=== PATIENT | male | born 1965 | race Caucasian/White ===

== ENCOUNTER 2017-09-08 11:07 | Emergency (ER) | payer OTHER, SELFPAY ==
--- NOTE | 2017-09-08 11:51 | RAD ---
CHEST 1 VIEW LEFT RIBS 3 VIEWS: Date: 09/08/17 HISTORY: Cough x3 weeks. FINDINGS: CHEST: Normal cardiac silhouette. Costophrenic angles are clear. Left perihilar opacity measuring 6.5 cm. In fection is suspected. No pneumothorax. LEFT RIBS: No fracture. No cortical irregularity. No periosteal reaction. IMPRESSION: 1. Unremarkable left ribs. 2. Left perihilar opacity, which is presumed to be due to pneumonia until proven otherwise. Clinical correlation with patient's past medical history is essential and current presentation is essential. If the patient does not present clinically for pneumonia, better interrogation with CT scan be perfor med. CODE LN. POS: [facility]
[2017-09-08] MEDS ORDERED: Ketorolac Tromethamine 30 MG/ML VIAL ONE (12:10)
[2017-09-08 12:14] LABS: #Eosinphils 0.2 thou/uL (0.0-0.7); #Lymphocytes 1.3 thou/uL (1.20-3.40); #Monocytes 1.3 thou/uL (0.11-0.59); #Neutrophils 10.4 thou/uL (1.40-6.50); %Basophils 0.4 % (0.0-1.0); %Eosinophils 1.3 % (0.0-10.0); %Lymphocytes 9.9 % (21.0-51.0); %Neutrophils 78.5 % (42.0-75.0); Hemoglobin 15.7 g/dL (14.0-18.0); Mean Corpuscular HGB CONC 33.3 g/dL (32.0-36.0); Mean Corpuscular Hemoglobin 33.5 pg (27.0-31.0); Mean Platelet Volume 7.6 fL (7.4-10.4); Platelet Count 283 thou/uL (130-400); RBC Distribution Width 11.6 % (11.5-14.5); White Blood Cell (WBC) Count 13.2 thou/uL (4.8-10.8)
[2017-09-08 12:32] LABS: Anion Gap 14 mmol/L (10-20); BUN (Urea Nitrogen) 10 mg/dL (8.9-20.6); Calc. Creatinine Clearance 0 mL/min (70-130); Calcium 9.2 mg/dL (7.8-10.44); Carbon Dioxide 23 mmol/L (22-29); Chloride 102 mmol/L (98-107); Estimated GFR-MDRD 86; Glucose 194 mg/dL (70-105); Potassium 3.9 mmol/L (3.5-5.1); Sodium 135 mmol/L (136-145)
[2017-09-08] MEDS ORDERED: ISOVUE-370 76%-LOCM 1 ML ONE (13:03)
--- NOTE | 2017-09-08 15:13 | CT ---
CT PULMONARY ANGIOGRAM WITH IV CONTRAST AND 3D MIP RECONSTRUCTIONS: Date: 09/08/17 PROVIDED CLINICAL HISTORY: Cough and chest pain. FINDINGS: There is no evidence for central or segmental pulmonary embolus. The heart, pericardium, and great ve ssels appear unremarkable. There is superior segment left lower lobe consolidation compatible with pn eumonia. Mild reactive hilar lymph node prominence on the left. Lungs appear otherwise clear. No pleu ral fluid or pneumothorax apparent. The airway appears patent and of normal caliber. The osseous stru ctures demonstrate no concerning osteoblastic or osteolytic lesions. The visualized portions of the u pper abdomen demonstrate an unremarkable CT appearance for the phase of contrast in which the study w as acquired. IMPRESSION: 1. No evidence for central or segmental pulmonary embolus. 2. Superior segment left lower lobe pneumonia. POS: [facility]
== END 2017-09-08 14:38 | disposition home or self-care (01) ==
LOC: ERS 11:07
DX: J18.9 Pneumonia, unspecified organism (principal); F17.210 Nicotine dependence, cigarettes, uncomplicated
CPT/HCPCS: 36415; 71275; 80048; 85025; 85379; 96374; J1885

== ENCOUNTER 2017-12-26 18:51 | Emergency (ER) | payer SELFPAY ==
--- NOTE | 2017-12-26 21:18 | RAD ---
PORTABLE UPRIGHT FRONTAL CHEST RADIOGRAPH: 12/26/17 COMPARISON: 08/20/07. HISTORY: Sore throat, headache, cough. FINDINGS: The lungs are clear. Heart and mediastinal contours are unremarkable. IMPRESSION: No acute findings. POS: [facility]
== END 2017-12-26 21:32 | disposition home or self-care (01) ==
LOC: ERS 18:51
DX: J06.9 Acute upper respiratory infection, unspecified (principal); I10 Essential (primary) hypertension; F17.210 Nicotine dependence, cigarettes, uncomplicated
CPT/HCPCS: 71045; 87081; 87430

== ENCOUNTER 2018-03-11 10:18 | Emergency (ER) | payer OTHER, SELFPAY | END 2018-03-11 10:50 | disposition home or self-care (01) | LOC: ERS 10:18 | DX: K04.7 Periapical abscess without sinus (principal); I10 Essential (primary) hypertension; F17.210 Nicotine dependence, cigarettes, uncomplicated | CPT/HCPCS: 99282 ==

== ENCOUNTER 2018-10-12 11:18 | Emergency (ER) | payer OTHER | END 2018-10-12 12:33 | disposition home or self-care (01) | LOC: ERS 11:18 | DX: J06.9 Acute upper respiratory infection, unspecified (principal); I10 Essential (primary) hypertension; F17.210 Nicotine dependence, cigarettes, uncomplicated | CPT/HCPCS: 87804; 99283 ==

== ENCOUNTER 2018-10-14 06:10 | Emergency (ER) | payer OTHER ==
--- NOTE | 2018-10-14 08:39 | RAD ---
CHEST 2 VIEWS: INDICATION: Cough and congestion. COMPARISON: Prior exam dated 12/26/2017. FINDINGS: There is left upper lobe airspace consolidation consistent with pneumonia. The right lung is clear. Heart size is normal. No acute osseous abnormality is evident. IMPRESSION: Left upper lobe pneumonia. Recommend radiographic followup to resolution. POS: [facility]
[2018-10-14] MEDS ORDERED: cefTRIAXone\\ROCEPHIN 1 GM VIAL ONE (08:42)
[2018-10-14] MEDS ORDERED: Lidocaine 1% PF 5 ML VIAL ONE (08:42)
== END 2018-10-14 14:07 | disposition home or self-care (01) ==
LOC: ERS 06:10
DX: J18.9 Pneumonia, unspecified organism (principal); I10 Essential (primary) hypertension; F17.210 Nicotine dependence, cigarettes, uncomplicated
CPT/HCPCS: 71046; 93005; 94640; 96372; J0696; J2001; J7620

== ENCOUNTER 2018-10-16 17:51 | Inpatient (IN) | payer OTHER ==
[~2018-10-16 17:51] MED LIST: ISOVUE-370 76%-LOCM 1 ML ONE
--- NOTE | 2018-10-16 18:19 | RAD ---
Radiograph chest one view: 10/16/2018 At 6:14 PM HISTORY: 53-year-old male with cough and dyspnea COMPARISON: 10/14/2018 FINDINGS: Airspace opacity involving significant portion of left upper lobe is unchanged. No cardiomegaly. No p neumothorax or pulmonary edema. No interval change. IMPRESSION: Left upper lobe pneumonia without major interval change.
[2018-10-16] MEDS ORDERED: Acetaminophen 500 MG TAB ONE (18:34)
[2018-10-16 18:41] LABS: #Basophils 0.1 thou/uL (0.0-0.2); #Eosinphils 0.2 thou/uL (0.0-0.7); #Lymphocytes 2.7 thou/uL (1.20-3.40); #Monocytes 1.7 thou/uL (0.11-0.59); #Neutrophils 15.1 thou/uL (1.40-6.50); %Basophils 0.3 % (0.0-1.0); %Eosinophils 0.9 % (0.0-10.0); %Lymphocytes 13.7 % (21.0-51.0); %Monocytes 8.7 % (0.0-10.0); %Neutrophils 76.5 % (42.0-75.0); Hemoglobin 14.8 g/dL (14.0-18.0); Mean Corpuscular HGB CONC 30.5 g/dL (32.0-36.0); Mean Corpuscular Hemoglobin 30.2 pg (27.0-31.0); Mean Corpuscular Volume 99.2 fL (78.0-98.0); Mean Platelet Volume 7.6 fL (7.4-10.4); Platelet Count 520 thou/uL (130-400); RBC Distribution Width 11.9 % (11.5-14.5); Red Blood Cell (RBC) Count 4.89 mill/uL (4.70-6.10); White Blood Cell (WBC) Count 19.8 thou/uL (4.8-10.8)
[2018-10-16 19:11] LABS: ALT (SGPT) 39 U/L (8-55); AST (SGOT) 39 U/L (5-34); Albumin 3.5 g/dL (3.5-5.0); Alkaline Phosphatase 164 U/L (40-150); Anion Gap 16 mmol/L (10-20); BUN (Urea Nitrogen) 9 mg/dL (8.4-25.7); Bilirubin, Total 0.4 mg/dL (0.2-1.2); Calc. Creatinine Clearance 0 mL/min (70-130); Calcium 9.4 mg/dL (7.8-10.44); Carbon Dioxide 27 mmol/L (22-29); Chloride 96 mmol/L (98-107); Estimated GFR-MDRD 76; Globulin 4.7 g/dL (2.4-3.5); Glucose 131 mg/dL (70-105); Potassium 3.5 mmol/L (3.5-5.1); Protein, Total 8.2 g/dL (6.0-8.3); Sodium 135 mmol/L (136-145)
[2018-10-16] MEDS ORDERED: Sodium Chloride 0.9% 100 ML ONE (19:22)
[2018-10-16] MEDS ORDERED: Piperacillin/Tazobactam 3.375 GM VIAL ONE (19:22)
--- NOTE | 2018-10-16 20:06 | CT ---
CT angiogram thorax with contrast: (CTA pulmonary angiogram) HISTORY: 53-year-old male with hemoptysis and dyspnea TECHNIQUE: IV injection of iodinated contrast. Scan acquisition timing attempted to coincide with iodinated contrast bolus reaching maximal density in pulmonary arteries. 3-D MIP reconstructions. FINDINGS: Unfortunately, there is very little IV contrast material in the pulmonary artery branches, and theref ore this study is nondiagnostic for PE. Instead, there is dense contrast opacification of the thoracic aorta which has no aneurysm or dissect ion. There is a moderately large consolidation in the left upper lobe involving posterior segment and apic al segment. There are groundglass densities in the anterior segment of left upper lobe. No consolidation or pulmonary edema involving left lower lobe, right middle lobe, right lower lobe, or r ight upper lobe. No pleural effusion or pneumothorax. Trachea and bilateral mainstem bronchi are patent and clear. No cardiomegaly or pericardial effusion. Nonspecific multiple mildly enlarged mediastinal lymph nodes. IMPRESSION: 1) left upper lobe pneumonia. 2) nondiagnostic for pulmonary thromboembolism because of poor IV contrast bolus timing
--- NOTE | 2018-10-16 20:33 | PDOC.FPRHP ---
- History of Present Illness Chief Complaint: Cough History of Present Illness: 53 yo M presents with 1.5 months of respiratory infections. Has been to [facility] ED x3 and [facility] x2 since does not have PCP. Been on Z pack, another unknown antibiotic, and tamiflu. Never confirmed with flu test. Told he had bronchitis initially then pneumonia at his most recent [facility] ED visit on 10/14. Reports he is feeling a bit better now. Has cough no longer green productive. Reports hemoptysis, low grade fever, nausea, decreased food intake. Denies allergies, vomiting, nasal congestion. Previously told he has HTN. Was on unknown medication which made him feel better while incarcerated but none since. - Allergies/Adverse Reactions Allergies Allergy/AdvReac Type Severity Reaction Status Date / Time fexofenadine [From Beba] Allergy Verified 10/16/18 21:34 gabapentin Allergy Verified 10/16/18 21:34 - Home Medications Medication Instructions Recorded Confirmed Type Levofloxacin 750 mg PO DAILY 10/16/18 10/16/18 History Naproxen Sodium [Aleve] 220 mg PO BID PRN 10/16/18 10/16/18 History - History PMHx: HTN not on med, pinched cervical nerve with L arm numbness PSHx: anal abscess FHx: DM, CHF, CAD, father-asbestos lung cancer Social: Marijuana use. Prior cocaine use but no IV drug use. Current smoker 1 PPD x 30 yrs. Prior alcohol use, quit 3-4 yrs ago. - Review of Systems General: reports: fever/chills, weight/appetite/sleep changes ENT: denies: nasal congestion Respiratory: reports: cough, congestion. denies: shortness of breath Cardiovascular: denies: chest pain, palpitation Gastrointestinal: reports: nausea. denies: vomiting, diarrhea Genitourinary: denies: dysuria Skin: denies: rashes Musculoskeletal: denies: pain, swelling Neurological: denies: weakness - Vital signs BP: 135/84 HR: 85 RR: 19 Tmax: 98.2 Pox: 98% on RA Wt: 88 kg - Physical Exam Constitutional: awake, alert and oriented HEENT: normocephalic and atraumatic, grossly normal vision, grossly normal hearing, MMM Heart: RRR, normal S1/S2, no murmurs/rubs/gallops Lungs: CTAB, no wheezing, no retractions Abdomen: soft, non-tender Musculoskeletal: normal structure, normal tone Neurological: no focal deficit Skin: no rash/lesions, good turgor, capillary refill <2 seconds Heme/Lymphatic: other (tattoos) FMR H&P: Results - Labs Result Diagrams: 10/17/18 04:51 10/17/18 04:51 Lab results: WBC 19.8 thou/uL (4.8-10.8) H 10/16/18 18:13 Hgb 14.8 g/dL (14.0-18.0) 10/16/18 18:13 Hct 48.5 % (42.0-52.0) 10/16/18 18:13 MCV 99.2 fL (78.0-98.0) H 10/16/18 18:13 Plt Count 520 thou/uL (130-400) H 10/16/18 18:13 Neutrophils % 76.5 % (42.0-75.0) H 10/16/18 18:13 Sodium 135 mmol/L (136-145) L 10/16/18 18:13 Potassium 3.5 mmol/L (3.5-5.1) 10/16/18 18:13 Chloride 96 mmol/L (98-107) L 10/16/18 18:13 Carbon Dioxide 27 mmol/L (22-29) 10/16/18 18:13 BUN 9 mg/dL (8.4-25.7) 10/16/18 18:13 Creatinine 1.03 mg/dL (0.7-1.3) 10/16/18 18:13 Glucose 131 mg/dL (70-105) H 10/16/18 18:13 Lactic Acid 1.9 mmol/L (0.5-2.2) 10/16/18 18:13 Calcium 9.4 mg/dL (7.8-10.44) 10/16/18 18:13 Total Bilirubin 0.4 mg/dL (0.2-1.2) 10/16/18 18:13 AST 39 U/L (5-34) H 10/16/18 18:13 ALT 39 U/L (8-55) 10/16/18 18:13 Alkaline Phosphatase 164 U/L (40-150) H 10/16/18 18:13 B-Natriuretic Peptide 20.6 pg/mL (0-100) 10/16/18 18:13 Serum Total Protein 8.2 g/dL (6.0-8.3) 10/16/18 18:13 Albumin 3.5 g/dL (3.5-5.0) 10/16/18 18:13 FMR H&P: A/P - Problem List (1) CAP (community acquired pneumonia) Current Visit: Yes Status: Acute Code(s): J18.9 - PNEUMONIA, UNSPECIFIED ORGANISM (2) Leukocytosis Current Visit: Yes Status: Acute Code(s): D72.829 - ELEVATED WHITE BLOOD CELL COUNT, UNSPECIFIED (3) Thrombocytosis Current Visit: Yes Status: Acute (4) Tobacco abuse Current Visit: Yes Status: Chronic Code(s): Z72.0 - TOBACCO USE - Plan Sepsis 2/2 CAP, failed outpatient treatment - CXR and CT chest show left upper lobe PNA - tachycardia and WBC 19.5 on admission. Given 1L IVF in ED and tachycardia resolved. No respiratory distress. - pending Bcx - s/p vanc, zosyn, levaquin in ED. Will start doxy and rocephin in am (10/17) - pending quant gold, acid fast sputum, urine strep and legionella for further evaluation - ordered procalcitonin Leukocytosis - with left shift, recheck on am labs Thrombocytosis - most likely reactive. Trend on am labs Mildly elevated AST - 39, will repeat in am and get further workup if persistently elevated Prior HTN diagnosis - BP now 130s systolic - will monitor and add med if needed Tobacco abuse - patient interested in cessation. Has quit other substances cold turkey in past. History of incarceration - 6 months duration, about 3 years ago Ppx: SCD Diet: Regular Code: FULL PCP: none - ERs Dispo: admit to medical inpatient Case discussed with Dr. Sepulveda FMR H&P: Upper Level - Pertinent history 53 yo M presents with hemoptysis following 5 week course of on and off respiratory symptoms. Reports he has been seen in ED 5 times and given amoxicillin, z pack and tamiflu - all of which gave him short term relief but symptoms continued to return. A couple of days ago he had productive cough with phlegm and blood streaking. Denies any today. Endorses subjective fever "one point up" denies n/v/d/dysuria/hematuria/rashes. Denies sick contacts. Smokes 1 ppd but hasn't in the last few days. Poor PO intake as well. H/o incarceration. - Pertinent findings VSS Labs and imaging reviewed EKG sinus tachycardia Gen: awake, alert, oriented x3 HEENT: NCAT, poor dentition, MMM CV: RRR, no murmur RESP: wheezing in LLL field, decreased air entry in ARMANI, RUL and RLL WNL ABD: soft, NTND EXT: no edema SKIN: tattoos, scars from welding - Plan Date/Time: 10/16/182032 53 yo M with sepsis 2/2 CAP 1. Sepsis 2/2 CAP - Has failed azithromycin so will proceed with rocephin and doxy - BCx pending - AFP added with h/o incarceration and now hemoptysis - Quant gold, urine strep and legionella - Will place in isolation with TB precautions Please see Dr. Ewing's note for remainder of A/P I, Polina Pavon MD, PGY-3, have evaluated this patient and agree with findings/ plan as outlined by paid intern resident. Pertinent changes/additions are listed here.
[2018-10-16] MEDS ORDERED: Sodium Chloride 0.9% 1,000 ML IV SCH (21:21)
[2018-10-16] MEDS ORDERED: Ondansetron ODT 4 MG TAB SL PRN (21:21)
[2018-10-16] MEDS ORDERED: Ondansetron PF 4 MG/2 ML Vial IVP PRN (21:21)
[2018-10-16 21:22] VITALS: BMI 25.6
[2018-10-16] MEDS: Acetaminophen 325 MG TAB PO PRN (21:49)
[2018-10-16] MEDS ORDERED: Nicotine 14 MG PATCH TD SCH (22:45)
[2018-10-16] MEDS: Melatonin 3 MG TAB PO PRN (22:48)
[2018-10-16] MEDS ORDERED: cefTRIAXone\\ROCEPHIN 1 GM in Sodium Chloride 0.9% 100 ML IVPB SCH (23:45)
[2018-10-17 06:12] LABS: #Basophils 0.1 thou/uL (0.0-0.2); #Eosinphils 0.2 thou/uL (0.0-0.7); #Lymphocytes 2.3 thou/uL (1.20-3.40); #Monocytes 1.6 thou/uL (0.11-0.59); #Neutrophils 10.6 thou/uL (1.40-6.50); %Basophils 0.4 % (0.0-1.0); %Eosinophils 1.4 % (0.0-10.0); %Lymphocytes 15.7 % (21.0-51.0); %Monocytes 10.8 % (0.0-10.0); %Neutrophils 71.8 % (42.0-75.0); Hemoglobin 12.8 g/dL (14.0-18.0); Mean Corpuscular HGB CONC 30.1 g/dL (32.0-36.0); Mean Corpuscular Hemoglobin 30.3 pg (27.0-31.0); Mean Platelet Volume 8.1 fL (7.4-10.4); Platelet Count 410 thou/uL (130-400); RBC Distribution Width 11.8 % (11.5-14.5); Red Blood Cell (RBC) Count 4.24 mill/uL (4.70-6.10); White Blood Cell (WBC) Count 14.8 thou/uL (4.8-10.8)
[2018-10-17 06:33] LABS: ALT (SGPT) 35 U/L (8-55); AST (SGOT) 31 U/L (5-34); Albumin 2.9 g/dL (3.5-5.0); Alkaline Phosphatase 133 U/L (40-150); Anion Gap 16 mmol/L (10-20); BUN (Urea Nitrogen) 10 mg/dL (8.4-25.7); Bilirubin, Total 0.3 mg/dL (0.2-1.2); Calc. Creatinine Clearance 129 mL/min (70-130); Calcium 8.9 mg/dL (7.8-10.44); Carbon Dioxide 29 mmol/L (22-29); Chloride 99 mmol/L (98-107); Estimated GFR-MDRD Greater than 90; Globulin 3.8 g/dL (2.4-3.5); Glucose 62 mg/dL (70-105); Potassium 3.5 mmol/L (3.5-5.1); Protein, Total 6.7 g/dL (6.0-8.3); Sodium 140 mmol/L (136-145)
--- NOTE | 2018-10-17 06:39 | PDOC.FM ---
- Subjective Subjective: No overnight events. Reports improvement in sputum production and cough. Continues to feel short of breath. Currently endorses chills. No documented fevers overnight. No recent immobility, surgery, leg pain or swelling. - Objective MAR Reviewed: Yes Vital Signs & Weight: Vital Signs (12 hours) Temp Pulse Resp BP Pulse Ox 10/17/18 04:35 98.6 F 80 20 118/70 96 10/16/18 22:51 98.8 F 76 16 137/86 96 10/16/18 21:15 96 10/16/18 20:55 98.6 F 80 18 130/86 96 Weight Weight 87.997 kg I&O: 10/15/18 10/16/18 10/17/18 06:59 06:59 06:59 Intake Total 1400 Balance 1400 Result Diagrams: 10/17/18 04:51 10/17/18 04:51 Phys Exam - Physical Examination Constitutional: NAD HEENT: moist MMs Neck: supple Respiratory: no wheezing, clear to auscultation bilateral Cardiovascular: RRR, no significant murmur Gastrointestinal: soft, non-tender, positive bowel sounds Musculoskeletal: no edema Neurological: moves all 4 limbs Psychiatric: normal affect, A&O x 3 Skin: no rash Dx/Plan (1) CAP (community acquired pneumonia) Code(s): J18.9 - PNEUMONIA, UNSPECIFIED ORGANISM Status: Acute (2) Leukocytosis Code(s): D72.829 - ELEVATED WHITE BLOOD CELL COUNT, UNSPECIFIED Status: Acute (3) Thrombocytosis Status: Acute (4) Tobacco abuse Code(s): Z72.0 - TOBACCO USE Status: Chronic (5) Macrocytic anemia Code(s): D53.9 - NUTRITIONAL ANEMIA, UNSPECIFIED Status: Acute (6) History of incarceration Code(s): Z78.9 - OTHER SPECIFIED HEALTH STATUS Status: Acute (7) Elevated d-dimer Code(s): R79.89 - OTHER SPECIFIED ABNORMAL FINDINGS OF BLOOD CHEMISTRY Status : Acute - Plan Plan: 53yo male pmh of tobacco abuse and incarceration admitted for sepsis 2/2 CAP Sepsis 2/2 CAP, failed outpatient treatment - CXR/CT: Mod large Left upper lobe posterior and apical segment ground glass opacities. Multiple mildly enlarged mediastinal LNs - Tachycardic, WBC 19.5 on admission - Blood cultures pending - Continue Doxy & Ceftriaxone - Quant gold, acid fast sputum, urine strep and legionella for further evaluation. Will place ppd skin test as quant gold will not be sent off until Mon - Procal 0.22 - RPR, HIV, Hep panel pending Elevated D-dimer - CT: nondiagnostic of PE due to little IV contrast. - Tachycardia resolved. Not hypoxic. - Will repeat CTA this AM Macrocytic anemia - B12, folate pending Leukocytosis - likely 2/2 above Thrombocytosis - Likely reactive - Continue to trend Mildly elevated AST, resolved Prior HTN diagnosis - Continue to monitor BPs Tobacco abuse - Patient interested in cessation - Nicotine patch PRN History of incarceration - 6 months duration, about 3 years ago Code Status: FULL DVT ppx: SCDs Addendum - Attending - Attending Attestation Date/Time: 10/17/18 [id number] I personally evaluated the patient and discussed the management with Dr. Holder. I agree with the History, Examination, Assessment and Plan documented above with any addition or exceptions noted below. The patient was admitted with pneumonia. Repeat CTA today as previous CT could not rule out PE. Pt is on rocephin and doxycyline. Will trend WBC. Continue fluids, awaiting cultures.
[2018-10-17] MEDS ORDERED: Nicotine 14 MG PATCH TD PRN (06:42)
[2018-10-17] MEDS: Acetaminophen 325 MG TAB PO PRN ×2 (06:57→21:01)
[2018-10-17 07:02] LABS: Strep pneumo Urine Ag NEGATIVE (NEGATIVE)
[2018-10-17 07:03] LABS: Legionella Urinary Ag Negative (Negative)
[2018-10-17] MEDS ORDERED: Lactated Ringer's 500 ML IV SCH (08:30)
[2018-10-17 09:36] LABS: Syphilis Antibody Nonreactive (Nonreactive); Syphilis Antibody Index 0.03 S/CO (<1.00 Non-Reactive)
[2018-10-17 09:41] LABS: HBCM Index 0.05 S/CO (0-0.79); HBSAg Index 0.28 S/CO (0-0.99); HIV (1/2) Antibody/Antigen Non-Reactive (NonReactive); HIV 1/2 INDEX 0.17 S/CO (<1.00); Hep A IgM AB Non-Reactive (NonReactive); Hep A IgM S/CO 0.16 S/CO (0-0.79); Hep B Core Total Ab Non-Reactive (NonReactive); Hep B Core Total Index 0.04 S/CO (0-0.79); Hep B Surf Ag Non-Reactive S/CO (NonReactive); Hep C IgG Ab Non-Reactive (NonReactive); Hep C Index 0.33 S/CO (0-0.79); Hepatitis B Core IgM Abs Non-Reactive (NonReactive)
[2018-10-17 09:49] LABS: Folate (Folic Acid) 7.3 ng/mL (7.0-31.4)
[2018-10-17] MEDS: cefTRIAXone\\ROCEPHIN 1 GM in Sodium Chloride 0.9% 100 ML IVPB SCH (10:10)
--- NOTE | 2018-10-17 10:21 | CT ---
CT ANGIOGRAM CHEST WITH 3D RENDERING: HISTORY: Hemoptysis. Shortness of breath. Cough. Difficulty breathing. Follow up to a nondiagnostic study of 10/16/2018. FINDINGS: Interstitial and alveolar parenchymal changes in the left upper lobe with some fairly prominent confl uence, with some focal lower attenuation foci within this more confluent process, raising the possibi lity of some developing areas of necrosis. There are some minimally enlarged mediastinal lymph nodes , including an AP window node, up to 1.3 cm, which is definitely enlarged. There are some other bord luis e-sized mediastinal lymph nodes. No convincing CT evidence for acute pulmonary embolism. No ev idence for aortic aneurysm or dissection. No significant pleural effusion. There is a somewhat thic k-walled appearing distal esophagus, nonspecific, with possibilities including infection, inflammator y, or neoplastic change. No evidence for pericardial effusion. IMPRESSION: 1. No convincing CT evidence for acute pulmonary embolism. 2. Evidence for pneumonia in the left upper lobe with some developing low attenuation foci, raising concern for some developing necrosis within the pneumonia. 3. Abnormally enlarged left anterior-posterior window lymph node, up to 1.3 cm short axis. 4. Minimal abnormal thickening of the distal esophagus, nonspecific. CODE T POS: [facility]
[2018-10-17] MEDS: Tuberculin PPD 0.1 ML VIAL I-DERMAL SCH (10:50)
[2018-10-17] MEDS ORDERED: ISOVUE-370 76%-LOCM 1 ML ONE (16:18)
[2018-10-17] MEDS: Melatonin 3 MG TAB PO PRN (20:10)
[2018-10-17] MEDS: Zolpidem Tartrate 5 MG TAB PO PRN (21:01)
[2018-10-18 05:18] LABS: #Basophils 0.1 thou/uL (0.0-0.2); #Eosinphils 0.3 thou/uL (0.0-0.7); #Lymphocytes 1.8 thou/uL (1.20-3.40); #Monocytes 1.4 thou/uL (0.11-0.59); #Neutrophils 10.1 thou/uL (1.40-6.50); %Basophils 0.6 % (0.0-1.0); %Eosinophils 2.3 % (0.0-10.0); %Lymphocytes 13.4 % (21.0-51.0); %Neutrophils 73.8 % (42.0-75.0); Hemoglobin 13.2 g/dL (14.0-18.0); Mean Corpuscular HGB CONC 32.3 g/dL (32.0-36.0); Mean Corpuscular Hemoglobin 32.3 pg (27.0-31.0); Mean Platelet Volume 7.2 fL (7.4-10.4); Platelet Count 499 thou/uL (130-400); RBC Distribution Width 11.7 % (11.5-14.5); Red Blood Cell (RBC) Count 4.08 mill/uL (4.70-6.10); White Blood Cell (WBC) Count 13.7 thou/uL (4.8-10.8)
[2018-10-18 05:42] LABS: ALT (SGPT) 37 U/L (8-55); AST (SGOT) 24 U/L (5-34); Albumin 2.9 g/dL (3.5-5.0); Alkaline Phosphatase 119 U/L (40-150); Anion Gap 11 mmol/L (10-20); BUN (Urea Nitrogen) 8 mg/dL (8.4-25.7); Bilirubin, Total 0.3 mg/dL (0.2-1.2); Calc. Creatinine Clearance 122 mL/min (70-130); Calcium 8.9 mg/dL (7.8-10.44); Carbon Dioxide 30 mmol/L (22-29); Chloride 102 mmol/L (98-107); Estimated GFR-MDRD 90; Globulin 3.6 g/dL (2.4-3.5); Glucose 126 mg/dL (70-105); Protein, Total 6.5 g/dL (6.0-8.3); Sodium 139 mmol/L (136-145)
--- NOTE | 2018-10-18 06:53 | PDOC.FM ---
- Subjective Subjective: NAEO. Patient reports significant improvement in his SOB and denies any fever/ chills, N/V/D. Also reports that his cough is improving. Says he feels much better this AM. - Objective MAR Reviewed: Yes Vital Signs & Weight: Vital Signs (12 hours) Temp Pulse Resp BP Pulse Ox 10/18/18 03:50 98.5 F 82 16 129/77 98 10/17/18 23:40 98.7 F 75 16 128/82 98 10/17/18 20:10 97 10/17/18 20:00 99.0 F 89 16 150/85 H 97 Weight Weight 87.997 kg I&O: 10/16/18 10/17/18 10/18/18 06:59 06:59 06:59 Intake Total 1400 600 Balance 1400 600 Result Diagrams: 10/18/18 04:45 10/18/18 04:45 Phys Exam - Physical Examination Constitutional: NAD HEENT: moist MMs, sclera anicteric Neck: supple, full ROM Respiratory: no wheezing, no rales, no rhonchi, clear to auscultation bilateral Cardiovascular: RRR, no significant murmur Neurological: non-focal, moves all 4 limbs Psychiatric: normal affect, A&O x 3 Skin: no rash, normal turgor Dx/Plan (1) CAP (community acquired pneumonia) Code(s): J18.9 - PNEUMONIA, UNSPECIFIED ORGANISM Status: Acute (2) Elevated d-dimer Code(s): R79.89 - OTHER SPECIFIED ABNORMAL FINDINGS OF BLOOD CHEMISTRY Status : Acute (3) History of incarceration Code(s): Z78.9 - OTHER SPECIFIED HEALTH STATUS Status: Chronic (4) Leukocytosis Code(s): D72.829 - ELEVATED WHITE BLOOD CELL COUNT, UNSPECIFIED Status: Acute (5) Macrocytic anemia Code(s): D53.9 - NUTRITIONAL ANEMIA, UNSPECIFIED Status: Acute (6) Thrombocytosis Status: Acute (7) Tobacco abuse Code(s): Z72.0 - TOBACCO USE Status: Chronic - Plan Plan: 53yo male pmh of tobacco abuse and incarceration admitted for sepsis 2/2 CAP. Sepsis 2/2 CAP, failed outpatient treatment, resolved - CTA yesterday: Mod large Left upper lobe PNA with area of necrosis & multiple mildly enlarged mediastinal LNs - Vitals WNLs & leukocytosis improving with Blood cultures NTD. - Acid fast sputum, urine strep and legionella negative. Ppd skin test pending as quant gold will not be sent off until Mon. Will continue isolation pending results. RPR, HIV, & Hep panel negative as well. - Procal 0.22 yesterday, will repeat today. - Will continue Doxy & Ceftriaxone & plan on transitioning to PO only abx prior to likely d/c tomorrow so long as patient continues to clinically improve. Elevated D-dimer - Likely elevated in setting of acute infection as PE ruled out with repeat CTA yesterday as inital CTA not performed correctly. - In addition tachycardia has resolved since starting abx & patient is not hypoxic. Macrocytic anemia - B12 & folate WNLs. Will continue to monitor. Leukocytosis, improving - Down to 13.5 this AM. Will continue to trend. Thrombocytosis - Likely reactive - Continue to trend Prior HTN diagnosis - Continue to monitor BPs Tobacco abuse - Patient interested in cessation - Nicotine patch PRN History of incarceration - 6 months duration, about 3 years ago Mildly elevated AST, resolved Alcohol use - Mildly dilated area of esophagus on CTA. - Will encourage cessation and ensure close follow-up on discharge. Code Status: FULL DVT ppx: SCDs Abx: Rocephin & doxycycline IVFs: None Dispo: Likely d/c home tomorrow with close follow-up with [facility] pending negative PPD skin test. Addendum - Attending - Attending Attestation Date/Time: 10/18/18 2241 I personally evaluated the patient and discussed the management with Dr. Perez. I agree with the History, Examination, Assessment and Plan documented above with any addition or exceptions noted below. The patient is looking much better. He is sounding much clearer and is sitting up on the side of the bed with shortness of breath. Will continue rocephin and doxy. PPD will be read tomorrow and if negative, will d/c home.
[2018-10-18] MEDS: cefTRIAXone\\ROCEPHIN 1 GM in Sodium Chloride 0.9% 100 ML IVPB SCH (08:26)
[2018-10-18] MEDS: Tuberculin PPD 0.1 ML VIAL I-DERMAL SCH (08:27)
[2018-10-18] MEDS: Acetaminophen 325 MG TAB PO PRN ×2 (08:41→20:05)
[2018-10-18] MEDS ORDERED: Amlodipine 5 MG TAB PO SCH (09:00)
[2018-10-18] MEDS ORDERED: Ibuprofen 600 MG TAB PO PRN (16:14)
[2018-10-18] MEDS: Zolpidem Tartrate 5 MG TAB PO PRN (20:05)
[2018-10-19 05:53] LABS: #Basophils 0.1 thou/uL (0.0-0.2); #Eosinphils 0.4 thou/uL (0.0-0.7); #Lymphocytes 1.8 thou/uL (1.20-3.40); #Monocytes 0.8 thou/uL (0.11-0.59); #Neutrophils 6.9 thou/uL (1.40-6.50); %Basophils 0.5 % (0.0-1.0); %Eosinophils 4.1 % (0.0-10.0); %Lymphocytes 17.8 % (21.0-51.0); %Neutrophils 69.5 % (42.0-75.0); Hemoglobin 14.2 g/dL (14.0-18.0); Mean Corpuscular HGB CONC 33.5 g/dL (32.0-36.0); Mean Corpuscular Hemoglobin 33.3 pg (27.0-31.0); Mean Corpuscular Volume 99.3 fL (78.0-98.0); Mean Platelet Volume 7.3 fL (7.4-10.4); Platelet Count 522 thou/uL (130-400); RBC Distribution Width 11.7 % (11.5-14.5); Red Blood Cell (RBC) Count 4.28 mill/uL (4.70-6.10); White Blood Cell (WBC) Count 9.9 thou/uL (4.8-10.8)
[2018-10-19 06:17] LABS: ALT (SGPT) 68 U/L (8-55); AST (SGOT) 49 U/L (5-34); Alkaline Phosphatase 122 U/L (40-150); Anion Gap 12 mmol/L (10-20); BUN (Urea Nitrogen) 12 mg/dL (8.4-25.7); Bilirubin, Total 0.2 mg/dL (0.2-1.2); Calc. Creatinine Clearance 133 mL/min (70-130); Calcium 8.9 mg/dL (7.8-10.44); Carbon Dioxide 26 mmol/L (22-29); Chloride 104 mmol/L (98-107); Estimated GFR-MDRD Greater than 90; Globulin 3.8 g/dL (2.4-3.5); Glucose 135 mg/dL (70-105); Potassium 3.8 mmol/L (3.5-5.1); Protein, Total 6.8 g/dL (6.0-8.3); Sodium 138 mmol/L (136-145)
[2018-10-19] MEDS ORDERED: Amlodipine 5 MG TAB PO SCH ×3 (06:32→09:00)
--- NOTE | 2018-10-19 06:37 | PDOC.FM ---
- Subjective Subjective: NAEO. Patient states he feels well this AM. Denies any fever/chills, shortness of breath or N/V/D. Does report having chest pain yesterday that has since resolved. Is still coughing some but it is non-productive. - Objective MAR Reviewed: Yes Vital Signs & Weight: Vital Signs (12 hours) Temp Pulse Resp BP Pulse Ox 10/19/18 04:00 98.5 F 70 16 136/91 H 98 10/19/18 00:00 98 F 76 16 144/80 H 97 10/18/18 20:02 98 10/18/18 20:00 98.5 F 70 16 145/90 H 98 Weight Weight 87.997 kg I&O: 10/17/18 10/18/18 10/19/18 06:59 06:59 06:59 Intake Total 8518 383 1605 Balance 8262 214 2930 Result Diagrams: 10/19/18 05:16 10/19/18 05:16 Phys Exam - Physical Examination Constitutional: NAD HEENT: moist MMs, sclera anicteric Neck: supple, full ROM Respiratory: no wheezing, no rales, no rhonchi, clear to auscultation bilateral Cardiovascular: RRR, no significant murmur Neurological: non-focal, moves all 4 limbs Psychiatric: normal affect, A&O x 3 Skin: no rash, normal turgor Dx/Plan (1) CAP (community acquired pneumonia) Code(s): J18.9 - PNEUMONIA, UNSPECIFIED ORGANISM Status: Acute (2) Elevated d-dimer Code(s): R79.89 - OTHER SPECIFIED ABNORMAL FINDINGS OF BLOOD CHEMISTRY Status : Acute (3) History of incarceration Code(s): Z78.9 - OTHER SPECIFIED HEALTH STATUS Status: Chronic (4) Leukocytosis Code(s): D72.829 - ELEVATED WHITE BLOOD CELL COUNT, UNSPECIFIED Status: Acute (5) Macrocytic anemia Code(s): D53.9 - NUTRITIONAL ANEMIA, UNSPECIFIED Status: Acute (6) Thrombocytosis Status: Acute (7) Tobacco abuse Code(s): Z72.0 - TOBACCO USE Status: Chronic - Plan Plan: 53yo male pmh of tobacco abuse and incarceration admitted for sepsis 2/2 CAP. Sepsis 2/2 CAP, failed outpatient treatment, resolved - CTA yesterday: Mod large Left upper lobe PNA with area of necrosis & multiple mildly enlarged mediastinal LNs. - Vitals WNLs & leukocytosis resolved with negative Blood cultures. - Acid fast sputum, urine strep and legionella negative. Ppd skin test pending as quant gold will not be sent off until Mon. Will continue isolation pending results. RPR, HIV, & Hep panel negative as well. - Procal 0.22 on 10/17 & down to 0.15 yesterday. - Will transition to PO doxy today and continue for a total of 5 more days to complete a 7 day course. Elevated D-dimer - Likely elevated in setting of acute infection as PE ruled out with repeat CTA on 10/17 as inital CTA not performed correctly. - In addition tachycardia has resolved since starting abx & patient is not hypoxic. Macrocytic anemia - B12 & folate WNLs. Will continue to monitor. Thrombocytosis - Likely reactive - Continue to trend HTN - Started amlodipine yesterday as BP was elevated & will continue at 5mg QD today as BPs consistently elevated yesterday. - Will continue to monitor BPs & titrate BP meds as an outpatient PRN. Tobacco abuse - Patient interested in cessation - Nicotine patch PRN History of incarceration - 6 months duration, about 3 years ago Mildly elevated AST, resolved Leukocytosis, resolved - Down to 9.9 this AM. Alcohol use - Mildly thickended area of esophagus on CTA. - Will encourage cessation and ensure close follow-up on discharge. Code Status: FULL DVT ppx: SCDs Abx: doxycycline IVFs: None Dispo: Likely d/c home today with close follow-up with [facility] pending negative PPD skin test. Addendum - Attending - Attending Attestation Date/Time: 10/19/18 [id number] I personally evaluated the patient and discussed the management with Dr. Perez. I agree with the History, Examination, Assessment and Plan documented above with any addition or exceptions noted below. The patient is feeling well. He has no trouble breathing. PPD is negative per my read. He will d/c home on oral antibiotics.
[2018-10-19 08:36] VITALS: BP 143/88; TEMP 98.4
[2018-10-19] MEDS ORDERED: Doxycycline 100 MG CAP PO SCH (09:00)
[2018-10-19] MEDS: Acetaminophen 325 MG TAB PO PRN (09:21)
[2018-10-19] MEDS: Tuberculin PPD 0.1 ML VIAL I-DERMAL SCH (09:22)
--- NOTE | 2018-10-19 10:53 | DIS ---
DATE OF ADMISSION: 10/16/2018 DATE OF DISCHARGE: 10/19/2018 RESIDENT: Raisa Perez MD ADMITTING ATTENDING: Mir Sepulveda MD DISCHARGE ATTENDING: Yumi Chavez MD CONSULT: None. PROCEDURES: 1. Chest x-ray on 10/16/2018, notable for left upper lobe pneumonia without major interval change. 2. Chest/thorax CTA on 10/16/2018, notable for left upper lobe pneumonia. 3. Chest/thorax CTA on 10/17/2018, which showed no convincing CT evidence for acute pulmonary embolism, left upper lobe pneumonia with some developing low attenuation foci, raising concern for some developing necrosis within pneumonia as well as enlarged left AP lymph nodes and mild abnormal thickening of the distal esophagus. PRIMARY DIAGNOSES: Sepsis secondary to acute community-acquired pneumonia. SECONDARY DIAGNOSES: 1. Hypertension. 2. Tobacco abuse. 3. History of incarceration. DISCHARGE MEDICATIONS: 1. Acetaminophen 650 mg p.o. every 4 hours p.r.n. 2. Amlodipine 5 mg p.o. daily. 3. Doxycycline 100 mg p.o. b.i.d. #9 capsules. DISCONTINUED MEDICATIONS: Levofloxacin 750 mg p.o. daily. HOSPITAL COURSE: The patient is a 53-year-old gentleman, who presented to the Emergency Department with a chief complaint of one and half months of respiratory infections and symptoms. The patient reported he had been seen in [facility] Emergency Department three times and at [facility] twice as he has no primary care physician. He had been placed on a Z-Alexx and on a second unknown antibiotic and received Tamiflu, but presented due to persistent fever, nausea, and decreased p.o. intake as well as some associated hemoptysis. On presentation to the Emergency Department, the patient was noted to be satting 96% on room air, but was slightly tachycardic with a heart rate of 117 and breathing 23 times a minute. His blood pressure was also slightly elevated at 167/93. Routine lab work including a CBC and CMP were obtained, which was significant for an elevated white blood cell count of 19.8 and macrocytosis with an MCV of 99.2. He also had mild hyponatremia with a sodium level of 135 and slightly elevated AST and alkaline phosphatase of 39 and 164 respectively. His initial chest x-ray showed a left upper lobe pneumonia without much interval change compared to prior studies and this was followed by a chest CTA, which again showed a left upper lobe pneumonia, but could not rule out a PE due to poor timing of contrast. Blood cultures were also obtained and the patient was continued on IV doxycycline and Rocephin after receiving vancomycin, Zosyn, and Levaquin in the Emergency Department. Follow-up testing including a QuantiFERON-TB Gold, acid-fast sputum, urine strep and Legionella as well as procalcitonin were also ordered. The patient was then admitted to the floor for continued IV antibiotics. Over the course of his hospitalization, the patient's white blood cell count continued to decline until it reached normal limits by the date of discharge. His respiratory status also significantly improved so that by the date of discharge, he was breathing comfortably & his cough had reportedly almost completely resolved. Regarding follow-up studies, his acid-fast sputum studies as well as urine strep and Legionella were all negative. The patient also had a TB skin test performed due to his history of incarceration, which was read as negative on the date of discharge. The patient was therefore transitioned to p.o. antibiotics and discharged with instructions to follow-up closely with [facility] and physicians within 1 week of discharge. Regarding the patient's hypertension, his blood pressures were slightly above normal limits for the duration and he was therefore started on 5 mg of amlodipine daily and instructed to follow-up closely as an outpatient for titration of blood pressure medications as needed. The patient endorsed understanding. Regarding the patient's other lab abnormalities, all electrolytes and his LFTs were noted to be within normal limits by the date of discharge. DISPOSITION: Stable. DISCHARGE INSTRUCTIONS: 1. Location: Home. 2. Diet: Heart healthy diet. 3. Activity: Activity as tolerated. 4. Followup: The patient was instructed to follow up with [facility] and physicians within 1 week of discharge. Job ID: [id number] MTDD
== END 2018-10-19 11:34 | disposition home or self-care (01) | DRG 871 ==
LOC: ERS 17:51 → SURG B 21:01
PROVIDERS: ADMIT Family Medicine; ATTEND Family Medicine
DX: A41.9 Sepsis, unspecified organism (principal); J18.1 Lobar pneumonia, unspecified organism; E87.1 Hypo-osmolality and hyponatremia; I10 Essential (primary) hypertension; D47.3 Essential (hemorrhagic) thrombocythemia; R79.89 Other specified abnormal findings of blood chemistry; F17.210 Nicotine dependence, cigarettes, uncomplicated; F12.90 Cannabis use, unspecified, uncomplicated; D53.9 Nutritional anemia, unspecified; Z88.8 Allergy status to other drugs, medicaments and biological substances
CPT/HCPCS: 36415; 71045; 71275; 80053; 82607; 82746; 83605; 83880; 84145; 84484; 85025; 85379; 86480; 86580; 86704; 86705; 86709; 86780; 86803; 87040; 87116; 87206; 87340; 87389; 87899; 89220; 93005; J0696; J2543; J3370; J3490; Q9966

== ENCOUNTER 2019-06-03 10:38 | Emergency (ER) | payer OTHER ==
--- NOTE | 2019-06-03 12:49 | RAD ---
LEFT WRIST THREE VIEWS: HISTORY: Wrist pain status post fall a week ago. FINDINGS: There are arthritic changes of the wrist with some degenerative changes of the first carpometacarpal joint space and the triscaphe joint. Small cysts are seen involving the scaphoid. No fractures identi fied. IMPRESSION: No evidence of fracture. POS: [facility]
== END 2019-06-03 12:23 | disposition home or self-care (01) ==
LOC: ERS 10:38
DX: M25.532 Pain in left wrist (principal); I10 Essential (primary) hypertension; F17.210 Nicotine dependence, cigarettes, uncomplicated; W19.XXXA Unspecified fall, initial encounter; Z79.899 Other long term (current) drug therapy
CPT/HCPCS: 29125

== ENCOUNTER 2019-07-23 07:05 | Emergency (ER) | payer BC, OTHER ==
[2019-07-23 08:15] LABS: #Eosinphils 0.1 thou/uL (0.0-0.7); #Lymphocytes 0.9 thou/uL (1.20-3.40); #Monocytes 0.5 thou/uL (0.11-0.59); #Neutrophils 3.4 thou/uL (1.40-6.50); %Eosinophils 1.4 % (0.0-10.0); %Lymphocytes 18.3 % (21.0-51.0); %Monocytes 10.5 % (0.0-10.0); %Neutrophils 68.8 % (42.0-75.0); Mean Corpuscular HGB CONC 32.4 g/dL (32.0-36.0); Mean Corpuscular Volume 98.7 fL (78.0-98.0); Platelet Count 157 thou/uL (130-400); RBC Distribution Width 11.4 % (11.5-14.5); Red Blood Cell (RBC) Count 4.68 mill/uL (4.70-6.10); White Blood Cell (WBC) Count 4.9 thou/uL (4.8-10.8)
[2019-07-23 08:43] LABS: ALT (SGPT) 42 U/L (8-55); AST (SGOT) 32 U/L (5-34); Alkaline Phosphatase 123 U/L (40-110); Anion Gap 11 mmol/L (10-20); BUN (Urea Nitrogen) 10 mg/dL (8.4-25.7); Bilirubin, Total 0.7 mg/dL (0.2-1.2); Calc. Creatinine Clearance 0 mL/min (70-130); Calcium 8.5 mg/dL (7.8-10.44); Carbon Dioxide 27 mmol/L (22-29); Chloride 103 mmol/L (98-107); Estimated GFR-MDRD 85; Globulin 2.8 g/dL (2.4-3.5); Glucose 164 mg/dL (70-105); Potassium 3.7 mmol/L (3.5-5.1); Protein, Total 6.8 g/dL (6.0-8.3); Sodium 137 mmol/L (136-145)
--- NOTE | 2019-07-23 08:57 | RAD ---
CHEST 2 VIEWS: Date: 07/23/2019 HISTORY: Cough, congestion, headache, body aches. COMPARISON: 10/16/2018. FINDINGS: Heart size is normal. The lungs are clear. No pneumonia, edema, pleural effusion, or other acute proc ess. IMPRESSION: No significant acute intrathoracic disease. POS: [facility]
[2019-07-23] MEDS ORDERED: Azithromycin 250 MG TAB ONE (09:51)
[2019-07-23] MEDS ORDERED: Dexamethasone 10 MG/ML VIAL ONE (09:51)
[2019-07-23] MEDS ORDERED: Acetaminophen 500 MG TAB ONE (09:51)
[2019-07-23] MEDS ORDERED: cefTRIAXone\\ROCEPHIN 1 GM VIAL ONE (09:51)
[2019-07-23] MEDS ORDERED: Ondansetron ODT 4 MG TAB ONE (09:51)
[2019-07-23] MEDS ORDERED: Lidocaine 1% PF 5 ML VIAL ONE (09:51)
== END 2019-07-23 10:26 | disposition home or self-care (01) ==
LOC: ERS 07:05
DX: J44.1 Chronic obstructive pulmonary disease with (acute) exacerbation (principal); R50.9 Fever, unspecified; F17.210 Nicotine dependence, cigarettes, uncomplicated; I10 Essential (primary) hypertension; Z79.899 Other long term (current) drug therapy
CPT/HCPCS: 36415; 71046; 80053; 85025; 87804; 94640; 96372; J0696; J1100; J2001; J7620; Q0162

== ENCOUNTER 2020-09-29 11:34 | Emergency (ER) | payer BC, SELFPAY ==
[2020-09-29 12:19] LABS: #Eosinphils 0.2 thou/uL (0.0-0.7); #Lymphocytes 1.4 thou/uL (1.20-3.40); #Monocytes 0.9 thou/uL (0.11-0.59); #Neutrophils 4.8 thou/uL (1.40-6.50); %Basophils 0.7 % (0.0-1.0); %Eosinophils 2.4 % (0.0-10.0); %Lymphocytes 18.6 % (21.0-51.0); %Monocytes 12.7 % (0.0-10.0); %Neutrophils 65.6 % (42.0-75.0); Hemoglobin 17.1 g/dL (14.0-18.0); Mean Corpuscular HGB CONC 32.4 g/dL (32.0-36.0); Mean Corpuscular Hemoglobin 32.5 pg (27.0-31.0); Mean Platelet Volume 8.1 fL (7.4-10.4); Platelet Count 206 thou/uL (130-400); RBC Distribution Width 11.6 % (11.5-14.5); Red Blood Cell (RBC) Count 5.26 mill/uL (4.70-6.10); White Blood Cell (WBC) Count 7.3 thou/uL (4.8-10.8)
[2020-09-29 12:39] LABS: ALT (SGPT) 51 U/L (8-55); AST (SGOT) 38 U/L (5-34); Albumin 4.4 g/dL (3.5-5.0); Alkaline Phosphatase 116 U/L (40-110); Anion Gap 17 mmol/L (10-20); BUN (Urea Nitrogen) 13 mg/dL (8.4-25.7); Bilirubin, Total 1.5 mg/dL (0.2-1.2); Calc. Creatinine Clearance 0 mL/min (70-130); Calcium 9.6 mg/dL (7.8-10.44); Carbon Dioxide 23 mmol/L (22-29); Chloride 99 mmol/L (98-107); Globulin 3.7 g/dL (2.4-3.5); Glucose 131 mg/dL (70-105); Lipase 20 U/L (8-78); Potassium 4.8 mmol/L (3.5-5.1); Protein, Total 8.1 g/dL (6.0-8.3); Sodium 134 mmol/L (136-145)
[2020-09-29 13:02] LABS: Bilirubin Negative (Negative); Blood, Urine Negative (Negative); Clarity Clear (Clear); Glucose, Urine (Dipstick) Normal (Negative); Ketone, Urine 20 mg/dL (Negative); Leukocyte Negative Leu/uL (Negative); Nitrite Negative (Negative); Protein, Urine (Dipstick) 10 mg/dL (Neg-Trace); Specific Gravity, Urine 1.026 (1.002-1.036); Urobilinogen Normal mg/dL (Less than 2); pH, Urine 5.5 (5.0-9.0)
[2020-09-29] MEDS ORDERED: Iopamidol-370 76% 500 ML 1 ML ONE (13:05)
== END 2020-09-29 15:26 | disposition home or self-care (01) ==
LOC: ERS 11:34
DX: K57.32 Diverticulitis of large intestine without perforation or abscess without bleeding (principal); I10 Essential (primary) hypertension; R16.0 Hepatomegaly, not elsewhere classified; R94.5 Abnormal results of liver function studies; J44.9 Chronic obstructive pulmonary disease, unspecified; F17.210 Nicotine dependence, cigarettes, uncomplicated; Z79.899 Other long term (current) drug therapy
CPT/HCPCS: 36415; 74177; 80053; 81003; 83690; 85025; Q9967

== ENCOUNTER 2021-03-22 09:12 | Emergency (ER) | payer SELFPAY | END 2021-03-22 10:45 | disposition home or self-care (01) | LOC: ERS 09:12 | DX: R21 Rash and other nonspecific skin eruption (principal); I10 Essential (primary) hypertension; J44.9 Chronic obstructive pulmonary disease, unspecified; F17.210 Nicotine dependence, cigarettes, uncomplicated | CPT/HCPCS: 99282 ==

== ENCOUNTER 2022-08-07 00:05 | Emergency (ER) | payer SELFPAY ==
[2022-08-07] MEDS ORDERED: Acetaminophen 500 MG TAB ONE (01:41)
[2022-08-07] MEDS ORDERED: Dexamethasone 10 MG/ML VIAL ONE (01:41)
[2022-08-07] MEDS ORDERED: Ondansetron PF 4 MG/2 ML Vial ONE (02:01)
[2022-08-07] MEDS ORDERED: Ketorolac Tromethamine 30 MG/ML VIAL ONE (03:03)
[2022-08-07 03:05] LABS: ALT (SGPT) 33 U/L (8-55); AST (SGOT) 28 U/L (5-34); Albumin 3.7 g/dL (3.5-5.0); Alkaline Phosphatase 94 U/L (40-110); Anion Gap 12 mmol/L (10-20); BUN (Urea Nitrogen) 12 mg/dL (8.4-25.7); Bilirubin, Total 0.6 mg/dL (0.2-1.2); CRP (Inflammatory) 0.91 mg/dL (= or < 0.5); Calc. Creatinine Clearance 0 mL/min (70-130); Calcium 8.4 mg/dL (7.8-10.44); Carbon Dioxide 21 mmol/L (22-29); Chloride 103 mmol/L (98-107); Estimated GFR 86; Globulin 3.1 g/dL (2.4-3.5); Glucose 129 mg/dL (70-105); Potassium 3.8 mmol/L (3.5-5.1); Protein, Total 6.8 g/dL (6.0-8.3); Sodium 132 mmol/L (136-145)
[2022-08-07 03:09] LABS: Hemoglobin 14.3 g/dL (14.0-18.0); Mean Corpuscular HGB CONC 34.2 g/dL (32.0-36.0); Mean Corpuscular Hemoglobin 34.8 pg (27.0-31.0); Mean Platelet Volume 8.4 fL (7.4-10.4); Platelet Count 172 10x3/uL (130-400); RBC Distribution Width 11.8 % (11.5-14.5); Red Blood Cell (RBC) Count 4.12 mill/uL (4.70-6.10); White Blood Cell (WBC) Count 6.7 10x3/uL (4.8-10.8)
[2022-08-07 03:35] LABS: Band 4 % (5-11); Lymphocytes 8 % (21-51); MDiff Complete? YES; Monocytes 16 % (0-10); Neutrophil 70 % (42-75); Platelet Morphology Comment Appears Adequate; RBC Morphology Normal; Reactive Lymphocytes 1 % (0-10)
[2022-08-07] MEDS ORDERED: Iopamidol-370 76% 500 ML 1 ML ONE (10:45)
== END 2022-08-07 03:52 | disposition home or self-care (01) ==
LOC: ERS 00:05
DX: U07.1 COVID-19 (principal)
CPT/HCPCS: 36415; 71045; 71275; 80053; 83605; 84484; 85025; 85652; 86140; 87040; 93005; 96374; 96375; J1100; J1885; J2405; Q9967

== ENCOUNTER 2022-08-12 16:00 | Emergency (ER) | payer SELFPAY ==
[2022-08-12] MEDS ORDERED: Nitroglycerin 2% Ointment 1 INCH/1 GM Packet ONE ×2 (17:21→17:27)
[2022-08-12] MEDS ORDERED: Aspirin 81 mg Enteric Coated Tablet ONE (17:21)
[2022-08-12] MEDS ORDERED: Dexamethasone 10 MG/ML VIAL ONE (17:21)
[2022-08-12] MEDS ORDERED: Albuterol 200 PUFF (6.7GM INHALER) ONE (17:29)
[2022-08-12 17:38] LABS: #Eosinphils 0.1 thou/uL (0.0-0.7); #Lymphocytes 1.4 thou/uL (1.20-3.40); #Monocytes 1.3 thou/uL (0.11-0.59); #Neutrophils 6.5 thou/uL (1.40-6.50); %Basophils 0.3 % (0.0-1.0); %Eosinophils 1.4 % (0.0-10.0); %Monocytes 13.8 % (0.0-10.0); %Neutrophils 69.5 % (42.0-75.0); Hemoglobin 18.3 g/dL (14.0-18.0); Mean Corpuscular HGB CONC 33.3 g/dL (32.0-36.0); Mean Corpuscular Hemoglobin 33.6 pg (27.0-31.0); Mean Platelet Volume 8.9 fL (7.4-10.4); Platelet Count 175 10x3/uL (130-400); RBC Distribution Width 11.7 % (11.5-14.5); Red Blood Cell (RBC) Count 5.43 mill/uL (4.70-6.10); White Blood Cell (WBC) Count 9.4 10x3/uL (4.8-10.8)
[2022-08-12 17:56] LABS: ALT (SGPT) 40 U/L (8-55); AST (SGOT) 31 U/L (5-34); Alkaline Phosphatase 119 U/L (40-110); Anion Gap 18 mmol/L (10-20); BUN (Urea Nitrogen) 14 mg/dL (8.4-25.7); Bilirubin, Total 0.9 mg/dL (0.2-1.2); Calc. Creatinine Clearance 0 mL/min (70-130); Calcium 9.2 mg/dL (7.8-10.44); Carbon Dioxide 22 mmol/L (22-29); Chloride 100 mmol/L (98-107); Estimated GFR 84; Globulin 3.5 g/dL (2.4-3.5); Glucose 98 mg/dL (70-105); Lipase 24 U/L (8-78); Potassium 4.5 mmol/L (3.5-5.1); Protein, Total 7.5 g/dL (6.0-8.3); Sodium 135 mmol/L (136-145)
== END 2022-08-12 18:30 | disposition home or self-care (01) ==
LOC: ERS 16:00
DX: U07.1 COVID-19 (principal); E78.5 Hyperlipidemia, unspecified; I10 Essential (primary) hypertension; J44.9 Chronic obstructive pulmonary disease, unspecified; E11.9 Type 2 diabetes mellitus without complications; F17.210 Nicotine dependence, cigarettes, uncomplicated
CPT/HCPCS: 36415; 71045; 80053; 83690; 83880; 84484; 85025; 93005; 96374; J1100

== ENCOUNTER 2023-07-04 19:01 | Emergency (ER) | payer SELFPAY ==
[2023-07-04 21:15] LABS: SARS-CoV-2 NAA Rapid Test Not Detected (NotDetected)
== END 2023-07-04 19:51 | disposition home or self-care (01) ==
LOC: ERS 19:01
DX: B34.9 Viral infection, unspecified (principal); E11.9 Type 2 diabetes mellitus without complications; I10 Essential (primary) hypertension; J44.9 Chronic obstructive pulmonary disease, unspecified; F17.210 Nicotine dependence, cigarettes, uncomplicated
CPT/HCPCS: 71045

== ENCOUNTER 2023-07-07 03:22 | Inpatient (IN) | payer OTHER, SELFPAY ==
[2023-07-07] MEDS ORDERED: Aspirin Chewable 81 MG TAB ONE (04:10)
[2023-07-07] MEDS ORDERED: Nitroglycerin 0.4 MG TAB (25 Tab Bottle) ONE ×2 (04:11→08:49)
[2023-07-07 04:25] LABS: #Basophils 0.1 thou/uL (0.0-0.2); #Eosinphils 0.1 thou/uL (0.0-0.7); #Monocytes 1.7 thou/uL (0.11-0.59); #Neutrophils 14.7 thou/uL (1.40-6.50); %Basophils 0.5 % (0.0-1.0); %Eosinophils 0.3 % (0.0-10.0); %Lymphocytes 15.5 % (21.0-51.0); %Monocytes 8.8 % (0.0-10.0); %Neutrophils 74.4 % (42.0-75.0); Hematocrit 43.2 % (42.0-52.0); Hemoglobin 14.8 g/dL (14.0-18.0); Mean Corpuscular HGB CONC 34.3 g/dL (32.0-36.0); Mean Corpuscular Hemoglobin 33.3 pg (27.0-31.0); Mean Corpuscular Volume 97.3 fl (78.0-98.0); Mean Platelet Volume 10.9 fL (7.4-10.4); Platelet Count 281 10x3/uL (130-400); RBC Distribution Width 11.7 % (11.5-14.5); Red Blood Cell (RBC) Count 4.44 mill/uL (4.70-6.10); White Blood Cell (WBC) Count 19.8 10x3/uL (4.8-10.8)
[2023-07-07 04:47] LABS: ALT (SGPT) 32 U/L (8-55); AST (SGOT) 19 U/L (5-34); Albumin 3.9 g/dL (3.5-5.0); Alkaline Phosphatase 149 U/L (40-110); Anion Gap 15 mmol/L (10-20); BUN (Urea Nitrogen) 15 mg/dL (8.4-25.7); Bilirubin, Total 0.6 mg/dL (0.2-1.2); Calc. Creatinine Clearance 0 mL/min (70-130); Calcium 9.3 mg/dL (7.8-10.44); Carbon Dioxide 27 mmol/L (22-29); Chloride 95 mmol/L (98-107); Estimated GFR 66; Globulin 3.9 g/dL (2.4-3.5); Lipase 25 U/L (8-78); Potassium 3.5 mmol/L (3.5-5.1); Protein, Total 7.8 g/dL (6.0-8.3); Sodium 133 mmol/L (136-145)
[2023-07-07 04:51] LABS: Critical Call Chemistry NUR.DB10@0450; Glucose 468 mg/dL (70-105)
[2023-07-07] MEDS ORDERED: Insulin Regular 300 UNITS/3 ML VIAL ONE (06:32)
[2023-07-07] MEDS ORDERED: Vancomycin (BATCH) 1.5 GM in Premix 1 BAG IVPB SCH (06:45)
[2023-07-07 07:12] LABS: Glucose 350 mg/dL (70-105)
[2023-07-07 07:13] LABS: Lactic Acid 2.2 mmol/L (0.5-2.2)
[2023-07-07] MEDS ORDERED: Senokot S 8.6-50 MG TAB PO PRN (08:27)
[2023-07-07] MEDS ORDERED: Bisacodyl 5 MG TAB PO PRN (08:27)
[2023-07-07] MEDS ORDERED: HumaLOG 300 UNITS/3 ML VIAL SC PRN (08:31)
[2023-07-07] MEDS ORDERED: Glucagon 1 MG/ML KIT IM PRN (08:31)
[2023-07-07] MEDS ORDERED: Dextrose 5% in Water 1,000 ML IV PRN (08:31)
[2023-07-07] MEDS ORDERED: Dextrose 50% Abboject 50 ML SYRINGE SLOW IVP PRN (08:31)
[2023-07-07 08:32] LABS: Troponin I 0.035 ng/mL (< 0.028)
[2023-07-07] MEDS ORDERED: Albuterol 2.5 MG (3 mL) NEB NEB PRN (08:32)
[2023-07-07] MEDS: Nitroglycerin 0.4 MG TAB (25 Tab Bottle) SL PRN ×5 (08:56→18:37)
[2023-07-07] MEDS ORDERED: Insulin Glargine 30 UNITS/0.3 ML VIAL SC SCH (09:00)
[2023-07-07] MEDS ORDERED: Enoxaparin 40 MG (0.4 mL) SYRINGE SC SCH (09:00)
[2023-07-07] MEDS ORDERED: Ipratropium/Albuterol 3 ML NEB NEB SCH (09:00)
[2023-07-07] MEDS ORDERED: VANCOMYCIN IVPB PRN (09:06)
[2023-07-07] MEDS ORDERED: Azithromycin 250 MG TAB ONE (09:40)
[2023-07-07] MEDS ORDERED: Sodium Chloride 0.9% 100 ML ONE (09:40)
[2023-07-07] MEDS ORDERED: cefTRIAXone (ROCEPHIN) 2 GM VIAL ONE (09:40)
[2023-07-07] MEDS ORDERED: Enoxaparin 40 MG (0.4 mL) SYRINGE ONE (09:40)
[2023-07-07] MEDS ORDERED: HumaLOG 300 UNITS/3 ML VIAL ONE (09:40)
[2023-07-07] MEDS: Azithromycin 250 MG TAB PO SCH (09:46)
[2023-07-07] MEDS: cefTRIAXone\\ROCEPHIN 2 GM in Sodium Chloride 0.9% 100 ML IVPB SCH (09:47)
[2023-07-07] MEDS: HumaLOG 300 UNITS/3 ML VIAL SC PRN ×2 (09:47→17:58)
[2023-07-07] MEDS ORDERED: Ipratropium/Albuterol 3 ML NEB ONE (09:53)
[2023-07-07] MEDS ORDERED: Iopamidol-370 76% 500 ML MDV (1 ML CHARGE) ONE (11:04)
[2023-07-07 11:53] LABS: Troponin I 0.034 ng/mL (< 0.028)
[2023-07-07] MEDS ORDERED: FLU VACC QS2023-24(6MOS UP)/PF 60 MCG/0.5 ML SYRINGE IM ONE ×2 (15:15→17:50)
[2023-07-07] MEDS: Carvedilol 6.25 MG TAB PO SCH (17:57)
[2023-07-07] MEDS: Atorvastatin Calcium 40 MG TAB PO SCH (20:40)
[2023-07-07] MEDS: Vancomycin 1 GM in Premix 1 BAG IVPB SCH (20:41)
[2023-07-08 05:15] VITALS: BMI 35.2
[2023-07-08] MEDS: Vancomycin 1 GM in Premix 1 BAG IVPB SCH ×3 (08:11→22:59)
[2023-07-08] MEDS: Enoxaparin 40 MG (0.4 mL) SYRINGE SC SCH (08:14)
[2023-07-08] MEDS: Insulin Glargine 30 UNITS/0.3 ML VIAL SC SCH (08:14)
[2023-07-08] MEDS: Aspirin Chewable 81 MG TAB PO SCH (08:16)
[2023-07-08] MEDS: Azithromycin 250 MG TAB PO SCH (08:17)
[2023-07-08] MEDS: Carvedilol 6.25 MG TAB PO SCH ×2 (08:17→16:39)
[2023-07-08] MEDS: cefTRIAXone\\ROCEPHIN 2 GM in Sodium Chloride 0.9% 100 ML IVPB SCH (10:17)
[2023-07-08 11:06] LABS: #Basophils 0.1 thou/uL (0.0-0.2); #Eosinphils 0.2 thou/uL (0.0-0.7); #Monocytes 1.2 thou/uL (0.11-0.59); #Neutrophils 13.2 thou/uL (1.40-6.50); %Basophils 0.4 % (0.0-1.0); %Lymphocytes 9.5 % (21.0-51.0); %Monocytes 7.5 % (0.0-10.0); %Neutrophils 80.9 % (42.0-75.0); Hematocrit 43.1 % (42.0-52.0); Hemoglobin 14.4 g/dL (14.0-18.0); Mean Corpuscular HGB CONC 33.4 g/dL (32.0-36.0); Mean Corpuscular Volume 98.6 fl (78.0-98.0); Mean Platelet Volume 10.5 fL (7.4-10.4); Platelet Count 250 10x3/uL (130-400); RBC Distribution Width 11.6 % (11.5-14.5); Red Blood Cell (RBC) Count 4.37 mill/uL (4.70-6.10); White Blood Cell (WBC) Count 16.4 10x3/uL (4.8-10.8)
[2023-07-08 11:45] LABS: Anion Gap 12 mmol/L (10-20); BUN (Urea Nitrogen) 10 mg/dL (8.4-25.7); Calc. Creatinine Clearance 140 mL/min (70-130); Calcium 8.6 mg/dL (7.8-10.44); Carbon Dioxide 26 mmol/L (22-29); Cardiac Risk 3.9 (Less than 4.5); Chloride 97 mmol/L (98-107); Cholesterol 101 mg/dl (< 200 Desired); Estimated GFR 91; Glucose 348 mg/dL (70-105); HDL Cholesterol 26 mg/dL (>60 Neg Risk); Potassium 4.4 mmol/L (3.5-5.1); Sodium 131 mmol/L (136-145)
[2023-07-08] MEDS ORDERED: Acetaminophen 325 MG TAB PO PRN (12:26)
[2023-07-08] MEDS: HumaLOG 300 UNITS/3 ML VIAL SC PRN ×2 (13:09→17:54)
[2023-07-08 15:47] LABS: Triglycerides 133 mg/dL (Less than 150)
[2023-07-08 15:48] LABS: LDL Cholesterol, Calculated 48 mg/dL
[2023-07-08] MEDS ORDERED: Losartan 25 MG TAB PO SCH (17:15)
[2023-07-08 20:09] LABS: Vancomycin, Trough 7.3 ug/mL
[2023-07-08] MEDS: Atorvastatin Calcium 40 MG TAB PO SCH (21:38)
[2023-07-08] MEDS ORDERED: Vancomycin (BATCH) 1.25 GM in Premix 1 BAG IVPB SCH (22:00)
[2023-07-09 05:35] LABS: #Basophils 0.1 thou/uL (0.0-0.2); #Eosinphils 0.3 thou/uL (0.0-0.7); #Monocytes 1.1 thou/uL (0.11-0.59); #Neutrophils 11.4 thou/uL (1.40-6.50); %Basophils 0.6 % (0.0-1.0); %Eosinophils 2.2 % (0.0-10.0); %Lymphocytes 13.2 % (21.0-51.0); %Monocytes 7.5 % (0.0-10.0); %Neutrophils 75.5 % (42.0-75.0); Hematocrit 46.5 % (42.0-52.0); Hemoglobin 15.5 g/dL (14.0-18.0); Mean Corpuscular HGB CONC 33.3 g/dL (32.0-36.0); Mean Corpuscular Hemoglobin 32.4 pg (27.0-31.0); Mean Corpuscular Volume 97.3 fl (78.0-98.0); Mean Platelet Volume 10.8 fL (7.4-10.4); Platelet Count 198 10x3/uL (130-400); RBC Distribution Width 11.5 % (11.5-14.5); Red Blood Cell (RBC) Count 4.78 mill/uL (4.70-6.10); White Blood Cell (WBC) Count 15.1 10x3/uL (4.8-10.8)
[2023-07-09 05:41] LABS: Anion Gap 12 mmol/L (10-20); BUN (Urea Nitrogen) 8 mg/dL (8.4-25.7); Calc. Creatinine Clearance 164 mL/min (70-130); Calcium 8.7 mg/dL (7.8-10.44); Carbon Dioxide 24 mmol/L (22-29); Chloride 101 mmol/L (98-107); Estimated GFR 103; Glucose 165 mg/dL (70-105); Sodium 133 mmol/L (136-145)
[2023-07-09] MEDS ORDERED: Vancomycin (BATCH) 1.25 GM in Premix 1 BAG IVPB SCH (08:00)
[2023-07-09] MEDS ORDERED: Losartan 25 MG TAB PO SCH (09:00)
[2023-07-09] MEDS: HumaLOG 300 UNITS/3 ML VIAL SC SCH ×3 (09:35→17:42)
[2023-07-09] MEDS: Carvedilol 6.25 MG TAB PO SCH ×2 (09:35→17:39)
[2023-07-09] MEDS: Azithromycin 250 MG TAB PO SCH (09:38)
[2023-07-09] MEDS: Enoxaparin 40 MG (0.4 mL) SYRINGE SC SCH (09:38)
[2023-07-09] MEDS: Aspirin Chewable 81 MG TAB PO SCH (09:38)
[2023-07-09] MEDS: Insulin Glargine 30 UNITS/0.3 ML VIAL SC SCH (09:40)
[2023-07-09 11:18] VITALS: TEMP 98.2
[2023-07-09] MEDS: cefTRIAXone\\ROCEPHIN 2 GM in Sodium Chloride 0.9% 100 ML IVPB SCH (13:08)
[2023-07-09] MEDS: HumaLOG 300 UNITS/3 ML VIAL SC PRN (13:09)
[2023-07-09 17:49] VITALS: BP 134/76
== END 2023-07-09 18:52 | disposition home or self-care (01) | DRG 871 ==
LOC: ERS 03:22 → ERHOLD 06:51 → 2SW 12:17 → OBSVTOIN 07-09 12:06
PROVIDERS: ADMIT Internal Medicine; ATTEND Internal Medicine
DX: A41.9 Sepsis, unspecified organism (principal); I21.A1 Myocardial infarction type 2; J96.01 Acute respiratory failure with hypoxia; J18.9 Pneumonia, unspecified organism; R65.20 Severe sepsis without septic shock; I10 Essential (primary) hypertension; E11.65 Type 2 diabetes mellitus with hyperglycemia; K21.9 Gastro-esophageal reflux disease without esophagitis; K22.89 Other specified disease of esophagus; J44.9 Chronic obstructive pulmonary disease, unspecified; F17.210 Nicotine dependence, cigarettes, uncomplicated; Z88.8 Allergy status to other drugs, medicaments and biological substances; Z79.899 Other long term (current) drug therapy; Z83.3 Family history of diabetes mellitus; Z82.49 Family history of ischemic heart disease and other diseases of the circulatory system
CPT/HCPCS: 36415; 36416; 71045; 71275; 80048; 80053; 80061; 80202; 83605; 83690; 83880; 84484; 85025; 87040; 87081; 90471; 90686; 93005; 93306; 96372; 96374; 96375; 96376; G0008; G0378; J0696; J1650; J1815; J3370; J3370-JW; J3490; J7620; Q9967